=== PATIENT | female | born 1940 | race Hispanic/Latino ===

== ENCOUNTER 2017-11-06 02:28 | Observation (INO) | payer OTHER, MEDICARE ==
[~2017-11-06] VITALS: Ht 149.9 cm; Wt 110.5 kg
[~2017-11-06 02:28] MED LIST: AEC81 PO; CALC600T12 PO; CHOL50004 PO; INSLAN SQ; LACT1CAP58 PO; MOME17N NASAL; NITR100C4 PO; PRAV20TA4 PO; SITA1TAB6 PO
[2017-11-06] MEDS ORDERED: ONDANSETRON HCL 4 MG/2 ML VIAL ONE (02:55)
[2017-11-06] MEDS ORDERED: KETOROLAC TROMETHAMINE 30MG/ML ONE (02:56)
[2017-11-06] MEDS ORDERED: SODIUM CHLORIDE 0.9% 500ML 500 ML IV ONE ×2 (02:56→07:57)
[2017-11-06 03:13] LABS: APPEARANCE,URINE Clear (CLEAR); BILIRUBIN,URINE Negative (NEGATIVE); COLOR,URINE Yellow (YELLOW); GLUCOSE, URINE (UA) Negative (NEGATIVE); KETONES,URINE Negative (NEGATIVE); LEUKOCYTE ESTERASE ,URINE Large (NEGATIVE); NITRATE,URINE Negative (NEGATIVE); OCCULT BLOOD,URINE Small (NEGATIVE); PH,URINE 5.5 (5.0-8.0); PROTEIN,URINE Negative (NEGATIVE); UROBILINOGEN,URINE 0.2 mg/dL (0.2-1.0)
[2017-11-06 03:22] LABS: BACTERIA,URINE Moderate /HPF (None Seen); MUCUS,URINE Few LPF (None Seen); RBC,URINE 0-1 /HPF (0-1); SQUAMOUS EPITHELIAL CELL,UR Few /LPF (0-2)
[2017-11-06 03:22] LABS: BASOPHILS % (AUTO) 0.4 % (0.0-5.0); HEMATOCRIT 37.2 % (36-48); MEAN CORPUSCULAR HEMOGLOBIN 28.9 pg (27.0-33.0); MEAN CORPUSCULAR HGB CONC 33.4 g/dL (32.0-36.0); MEAN CORPUSCULAR VOLUME 86.5 fL (79-99); MONOCYTES % (AUTO) 2.4 % (3.0-13.0); NEUTROPHILS % (AUTO) 86.2 % (40.0-77.0); PLATELET COUNT (AUTO) 169 K/uL (130-400); RED CELL DISTRIBUTION WIDTH 14.5 % (11.0-15.5); WHITE BLOOD COUNT (AUTO) 8.9 K/uL (4.8-10.8)
[2017-11-06 03:23] LABS: BILIRUBIN,TOTAL 0.4 mg/dL (0.2-1.0); CREATININE 1.2 mg/dL (0.5-1.5); THYROID STIMULATING HORMONE 2.69 uIU/mL (0.36-3.74); TOTAL PROTEIN, SERUM 6.5 g/dL (6.0-8.3)
[2017-11-06 03:24] LABS: B-TYPE NATRIURETIC PEPTIDE 90 pg/mL (0-100)
[2017-11-06 03:32] LABS: POTASSIUM 3.9 mmol/L (3.5-5.1)
[2017-11-06] MEDS ORDERED: CEFTRIAXONE SODIUM 2 GM VIAL ONE (05:15)
[2017-11-06] MEDS ORDERED: ASPIRIN 325 MG TABLET ONE (07:54)
[2017-11-06 10:31] VITALS: BP 120/44
[2017-11-06] MEDS ORDERED: ACETAMINOPHEN 325 MG TAB PO PRN ×2 (13:30)
[2017-11-06] MEDS ORDERED: ACETAMINOPHEN-CODEINE 300/30MG TAB PO PRN (13:30)
[2017-11-06] MEDS ORDERED: HYDRALAZINE HCL 20 MG/ML VIAL IV PRN (13:30)
[2017-11-06] MEDS ORDERED: LACTULOSE 20 GM/30 ML UDCUP PO PRN (13:30)
[2017-11-06] MEDS ORDERED: MORPHINE SULFATE 2 MG/ML 1ML SYG IV PRN (13:30)
[2017-11-06] MEDS ORDERED: ONDANSETRON HCL 4 MG/2 ML VIAL IV PRN (13:30)
[2017-11-06] MEDS ORDERED: MAG HYDROX/AL HYDROX/SIMETH ES 30 ML SUSP UDCUP PO PRN (13:30)
[2017-11-06] MEDS ORDERED: NITROGLYCERIN 0.4 MG SL TAB SL PRN (13:30)
[2017-11-06] MEDS ORDERED: GUAIFENESIN-DM 200/20 MG 10 ML PO PRN (13:30)
[2017-11-06] MEDS ORDERED: SODIUM CHLORIDE 0.9% 1000ML 1,000 ML IV SCH (14:17)
[2017-11-06] MEDS ORDERED: LEVOFLOXACIN 500 MG/D5W 100 ML 100 ML ONE (16:23)
[2017-11-06] MEDS: LEVOFLOXACIN 500 MG/D5W 100 ML 100 ML IV SCH (16:24)
[2017-11-06 16:59] VITALS: BP 111/76
[2017-11-06] MEDS ORDERED: POTASSIUM CHLORIDE 20MEQ/100ML 100 ML IV PRN (18:45)
[2017-11-06] MEDS ORDERED: CLONIDINE HCL 0.1 MG TABLET PO PRN (18:45)
[2017-11-06] MEDS: SODIUM CHLORIDE 0.9% 1000ML 1,000 ML IV SCH (18:45)
[2017-11-06] MEDS ORDERED: POTASSIUM CHLORIDE 10% ELIXIR 20 MEQ/15 ML UDCUP PO PRN (18:45)
[2017-11-06] MEDS ORDERED: DEXTROSE 50%-WATER 50 ML DISP.SYRIN IV PRN (18:45)
[2017-11-06] MEDS ORDERED: GLUCAGON 1MG KIT 1 MG ML IM PRN (18:45)
[2017-11-06] MEDS ORDERED: LIDOCAINE HCL-MPF 1% 2ML VIAL IVP PRN (18:45)
[2017-11-06 19:41] LABS: CREATINE KINASE MB 0.9 ng/mL (0.5-3.6); CREATINE KINASE, TOTAL 141 U/L (21-232); MYOGLOBIN 102 ng/mL (10-92); TROPONIN I < 0.04 ng/mL (0.00-0.06)
[2017-11-06 19:54] VITALS: BP 122/65
[2017-11-06] MEDS: ASPIRIN 81 MG EC TAB PO SCH (20:40)
[2017-11-06] MEDS: INSULIN HUMULIN R 100 UNIT/ML 3ML SQ SCH (20:46)
[2017-11-06 23:00] VITALS: BP 135/59
[2017-11-07] VITALS (7 sets, daily range): BP systolic 111–147; BP diastolic 57–73
[2017-11-07 01:35] LABS: CREATINE KINASE MB 0.6 ng/mL (0.5-3.6); CREATINE KINASE, TOTAL 123 U/L (21-232); MYOGLOBIN 96 ng/mL (10-92); TROPONIN I < 0.04 ng/mL (0.00-0.06)
[2017-11-07] MEDS: SODIUM CHLORIDE 0.9% 1000ML 1,000 ML IV SCH ×3 (03:39→19:44)
[2017-11-07] MEDS: CEFTRIAXONE SODIUM 1 GM IV SCH (03:40)
[2017-11-07 03:45] LABS: HEMATOCRIT 31.8 % (36-48); MEAN CORPUSCULAR HEMOGLOBIN 30.3 pg (27.0-33.0); MEAN CORPUSCULAR VOLUME 86.4 fL (79-99); PLATELET COUNT (AUTO) 155 K/uL (130-400); RED BLOOD CELL COUNT(AUTO) 3.68 MIL/uL (4.00-5.50); RED CELL DISTRIBUTION WIDTH 14.7 % (11.0-15.5); WHITE BLOOD COUNT (AUTO) 5.5 K/uL (4.8-10.8)
[2017-11-07] MEDS ORDERED: PIND10TA2 PO (03:54)
[2017-11-07] MEDS ORDERED: LEVO25TA54 PO (03:54)
[2017-11-07 03:55] LABS: POTASSIUM 3.8 mmol/L (3.5-5.1)
[2017-11-07] MEDS: INSULIN HUMULIN R 100 UNIT/ML 3ML SQ SCH ×4 (06:06→21:00)
[2017-11-07] MEDS: FAMOTIDINE/PF 20 MG/2 ML VIAL IV SCH (08:54)
[2017-11-07] MEDS: INSULIN GLARGINE 100 UNITS/ML 10 ML VIAL SQ SCH (09:01)
[2017-11-07] MEDS: ASPIRIN 81 MG EC TAB PO SCH (21:10)
[2017-11-08 03:00] VITALS: BP 123/57
[2017-11-08 03:28] LABS: HEMATOCRIT 32.6 % (36-48); MEAN CORPUSCULAR HEMOGLOBIN 29.3 pg (27.0-33.0); MEAN CORPUSCULAR HGB CONC 34.2 g/dL (32.0-36.0); MEAN CORPUSCULAR VOLUME 85.7 fL (79-99); PLATELET COUNT (AUTO) 150 K/uL (130-400); RED CELL DISTRIBUTION WIDTH 14.6 % (11.0-15.5)
[2017-11-08 03:37] LABS: POTASSIUM 3.6 mmol/L (3.5-5.1)
[2017-11-08] MEDS: CEFTRIAXONE SODIUM 1 GM IV SCH (05:01)
[2017-11-08] MEDS: POTASSIUM CHLORIDE 20 MEQ ERTAB PO PRN ×2 (05:41→09:42)
[2017-11-08] MEDS: INSULIN HUMULIN R 100 UNIT/ML 3ML SQ SCH ×2 (06:20→11:56)
[2017-11-08 07:56] VITALS: BP 133/69
[2017-11-08] MEDS: FAMOTIDINE/PF 20 MG/2 ML VIAL IV SCH (08:06)
[2017-11-08] MEDS ORDERED: LEVO500T2 PO (09:50)
[2017-11-08] MEDS: INSULIN GLARGINE 100 UNITS/ML 10 ML VIAL SQ SCH (09:57)
[2017-11-08 11:45] VITALS: BP 152/78
[2017-11-08] MEDS: LEVOFLOXACIN 500 MG/D5W 100 ML 100 ML IV SCH (15:50)
[2017-11-08 16:00] VITALS: BP 126/61
== END 2017-11-08 17:00 | disposition home or self-care (01) ==
LOC: EDH 02:28 → INTOOBSV 06:12 → EDHIP 06:12 → 2AH 18:27
PROVIDERS: ADMIT Internal Medicine; ATTEND Internal Medicine
DX: N39.0 Urinary tract infection, site not specified (principal); A41.9 Sepsis, unspecified organism; E03.9 Hypothyroidism, unspecified; E78.5 Hyperlipidemia, unspecified; E11.65 Type 2 diabetes mellitus with hyperglycemia; I10 Essential (primary) hypertension; Z79.899 Other long term (current) drug therapy; Z90.49 Acquired absence of other specified parts of digestive tract
CPT/HCPCS: 36415 ×3; 71045; 80048 ×2; 80053; 81001; 82550 ×2; 82553 ×2; 82948 ×8; 83605 ×3; 83874 ×2; 83880; 84443; 84484 ×3; 85025; 85027 ×2; 87040 ×2; 87088; 87186; 87804 ×2; 93005 ×3; 96361 ×2; 96365; 96366; 96372 ×2; 96375; 96376; 99291; A4218; G0378 ×59; J0696 ×3; J1815 ×3; J1885; J1956 ×2; J2405 ×2; J3490 ×2; J7030 ×2; J7040 ×2

== ENCOUNTER → 2017-11-18 | Outpatient (CLI) | payer OTHER, MEDICARE ==
[~2017-11-18] MED LIST changes: -CHOL50004 PO; -LACT1CAP58 PO; +LEVO25TA54 PO; +LEVO500T2 PO; -MOME17N NASAL; -NITR100C4 PO; +PIND10TA2 PO
== END | disposition home or self-care (01) ==
LOC: RAH 11:39
PROVIDERS: ATTEND Family Medicine
DX: M17.0 Bilateral primary osteoarthritis of knee (principal); W06.XXXA Fall from bed, initial encounter; Y93.89 Activity, other specified; Y92.89 Other specified places as the place of occurrence of the external cause; Y99.8 Other external cause status
CPT/HCPCS: 73562

== ENCOUNTER → 2018-01-21 | Outpatient (CLI) | payer OTHER, MEDICARE | END | disposition home or self-care (01) | LOC: RAH 11:11 | PROVIDERS: ATTEND Family Medicine | DX: M51.37 Other intervertebral disc degeneration, lumbosacral region (principal) | CPT/HCPCS: 72100 ==

== ENCOUNTER → 2018-12-01 | Outpatient (CLI) | payer OTHER, MEDICARE | END | disposition home or self-care (01) | LOC: RAH 07:35 | PROVIDERS: ATTEND Internal Medicine | DX: M17.0 Bilateral primary osteoarthritis of knee (principal); M47.816 Spondylosis without myelopathy or radiculopathy, lumbar region | CPT/HCPCS: 72100; 73560 ==

== ENCOUNTER → 2020-08-18 | Outpatient (CLI) | payer OTHER, MEDICARE ==
[~2020-08-18] MED LIST changes: -CALC600T12 PO; +CALC600T15 PO
== END | disposition home or self-care (01) ==
LOC: RAH 09:54
PROVIDERS: ATTEND Family Medicine
DX: S90.32XA Contusion of left foot, initial encounter (principal); M19.072 Primary osteoarthritis, left ankle and foot; M79.89 Other specified soft tissue disorders; X58.XXXA Exposure to other specified factors, initial encounter; Y93.89 Activity, other specified; Y92.89 Other specified places as the place of occurrence of the external cause; Y99.8 Other external cause status
CPT/HCPCS: 73630

== ENCOUNTER 2021-01-20 01:33 | Emergency (ER) | payer OTHER, MEDICARE ==
[~2021-01-20 01:33] MED LIST changes: +CALC-1125 PO; -CALC600T15 PO
[2021-01-20 03:00] LABS: BASOPHILS % (AUTO) 0.2 % (0.0-5.0); EOSINOPHILS % (AUTO) 3.4 % (0.0-8.0); HEMATOCRIT 39.4 % (36-48); LYMPHOCYTES % (AUTO) 25.6 % (21.0-51.0); MEAN CORPUSCULAR HEMOGLOBIN 29.9 pg (27.0-33.0); MEAN CORPUSCULAR VOLUME 90.6 fL (79-99); MONOCYTES % (AUTO) 6.9 % (3.0-13.0); NEUTROPHILS % (AUTO) 63.3 % (40.0-77.0); PLATELET COUNT (AUTO) 183 K/uL (130-400); RED BLOOD CELL COUNT(AUTO) 4.35 MIL/uL (4.00-5.50); RED CELL DISTRIBUTION WIDTH 13.2 % (11.0-15.5); WHITE BLOOD COUNT (AUTO) 8.2 K/uL (4.8-10.8)
[2021-01-20 03:08] LABS: POTASSIUM 4.3 mmol/L (3.5-5.1)
[2021-01-20 03:13] LABS: ALBUMIN 3.2 g/dL (3.5-5.0); BILIRUBIN,TOTAL 0.4 mg/dL (0.2-1.0); TOTAL PROTEIN, SERUM 6.8 g/dL (6.0-8.3)
[2021-01-20 03:24] LABS: INR 0.98 (0.85-1.15); PROTHROMBIN TIME 10.7 SEC (9.6-11.6)
[2021-01-20 03:26] LABS: PARTIAL THROMBOPLASTIN TIME 26.1 SEC (26.3-35.5)
== END 2021-01-20 06:55 | disposition home or self-care (01) ==
LOC: EDH 01:33
DX: S00.03XA Contusion of scalp, initial encounter (principal); S60.012A Contusion of left thumb without damage to nail, initial encounter; E11.9 Type 2 diabetes mellitus without complications; I10 Essential (primary) hypertension; E78.5 Hyperlipidemia, unspecified; E03.9 Hypothyroidism, unspecified; Z88.0 Allergy status to penicillin; W06.XXXA Fall from bed, initial encounter; Y93.89 Activity, other specified; Y92.89 Other specified places as the place of occurrence of the external cause; Y99.8 Other external cause status
CPT/HCPCS: 36415; 70450; 71045; 72125; 73130; 80053; 84484; 85025; 85610; 85730; 93005